=== PATIENT | male | born 1950 | race Two or more races ===

== ENCOUNTER → 2019-04-15 | Emergency (ER) | payer MEDICARE, OTHER ==
[~2019-04-15] VITALS: Ht 172.7 cm; Wt 104.3 kg
[~2019-04-15] MED LIST: ACCOLATE10 MG ORAL; AMLODIPINE BESYL5 MG ORAL; Albuterol ud Inhalation HHN ONE; GLIMEPIRIDE1 MG ORAL; HYDROCHLOROTHIA25 MG ORAL; Ipratropium 0.02% Inh Soln 2.5ml UD HHN ONE; KLONOPIN0.5 MG ORAL; LANTUS SOL100 UNIT/1 SUBQ; LOSARTAN POTASS50 MG ORAL; METFORMIN HCL500 M1 ORAL; ONGLYZA5 MG PO; QUETIAPINE FUM400 MG ORAL; ZOCOR20 M1 ORAL
[2019-04-15 17:30] VITALS: BP 122/48
--- NOTE | 2019-04-15 17:30 | NUR ---
ED Nurse Note: PT WAS BROUGHT IN BY AMBULANCE FROM [facility] DUE TO SMALL AMOUNT OF BRIGHT RED BLOOD WITH STOOL LAST NIGHT. DENIES ABD PAIN AND BLEEDING TODAY. EMS ALSO REPORTED THAT PT OXYGEN SATURATION WENT DOWN TO 86% IN ROOM AIR. PT CAME IN WITH O2 AT 2LPM. AAO X4, NON AMBULATORY WITH SOB AT REST. OCCASIONAL COUGHING NOTED.
[2019-04-15 18:25] LABS: EOSINOPHILS % (AUTO) 4.6 % (0.0-3.0); HEMATOCRIT 45.5 % (42.0-52.0); LYMPHOCYTES % (AUTO) 27.3 % (20.0-45.0); MEAN CORPUSCULAR VOLUME 99 FL (80-99); MONOCYTES % (AUTO) 9.2 % (1.0-10.0); PLATELET COUNT 109 K/UL (150-450); RED BLOOD COUNT 4.58 M/UL (4.70-6.10); RED CELL DISTRIBUTION WIDTH 13.3 % (11.6-14.8); WHITE BLOOD COUNT 5.7 K/UL (4.8-10.8)
[2019-04-15 18:31] LABS: ANION GAP 2 mmol/L (5-15); BLOOD UREA NITROGEN 24 mg/dL (7-18); CALCIUM 8.4 MG/DL (8.5-10.1); CARBON DIOXIDE 35 MMOL/L (21-32); CHLORIDE 107 MMOL/L (98-107); CREATININE 1.3 MG/DL (0.55-1.30); POTASSIUM 4.9 MMOL/L (3.5-5.1); SODIUM 144 MMOL/L (136-145)
[2019-04-15 18:36] LABS: ALANINE AMINOTRANSFERASE 15 U/L (12-78); ALBUMIN/GLOBULIN RATIO 0.7 (1.0-2.7); ALKALINE PHOSPHATASE 69 U/L (46-116); ASPARTATE AMINO TRANSFERASE 12 U/L (15-37); BILIRUBIN,TOTAL 0.2 MG/DL (0.2-1.0)
[2019-04-15 18:40] LABS: INR 1.1 (0.9-1.1)
--- NOTE | 2019-04-15 18:46 | NUR ---
ED Nurse Note: RT AT THE BED SIDE FOR BREATHING TREATMENT.
[2019-04-15 20:19] LABS: APPEARANCE,URINE CLEAR; BILIRUBIN, URINE NEGATIVE (NEGATIVE); COLOR,URINE PALE YELLOW; GLUCOSE, URINE (UA) NEGATIVE (NEGATIVE); KETONES,URINE NEGATIVE (NEGATIVE); LEUKOCYTE ESTERASE ,URINE NEGATIVE (NEGATIVE); NITRITE,URINE NEGATIVE (NEGATIVE); PH,URINE 5 (4.5-8.0); PROTEIN,URINE 3+ (NEGATIVE); UROBILINOGEN,URINE NORMAL MG/DL (0.0-1.0)
--- NOTE | 2019-04-15 20:40 | NUR ---
ED Nurse Note: LEFT MESSAGE FOR THANH KAPLAN NOTIFIYING OF PATIENT AMA AND RETURN. [facility] ETA 2145 PER CHAN ([facility])
--- NOTE | 2019-04-15 20:50 | NUR ---
ED Nurse Note: SPOKE WITH STEPHANIE YU OF [facility]. NOTIFIED OF PATIENT AMA AND RETURN TO SNF
--- NOTE | 2019-04-15 21:30 | Emergency Room Report ---
History of Present Illness General Chief Complaint: Gastrointestinal Bleed Source: Patient Present Illness HPI This patient has morbid obesity and COPD. He presents today because when he was having a bowel movement he noted bright red blood per rectum. He does have home oxygen. When I inquired as to if he was short of breath he declined that he was. However, he appeared short of breath. He denies chest pain. He denies abdominal pain. He has no other complaints. Allergies: Coded Allergies: MILK CONTAINING PRODUCTS (Verified Allergy, Mild, Rash, 04/14/15) Patient History Past Medical History: see triage record, DM, asthma, COPD, other - Anemia Social History: Reports: smoking; Denies: alcohol use, drug use Reviewed Nursing Documentation: PMH: Agreed; PSxH: Agreed Nursing Documentation-PMH Past Medical History: No History, Except For Hx Cardiac Problems: No - Anemia Hx Asthma: Yes Hx Diabetes: Yes Review of Systems All Other Systems: negative except mentioned in HPI Physical Exam Vital Signs Date Time Temp Pulse Resp B/P (MAP) Pulse Ox O2 Delivery O2 Flow Rate FiO2 04/15/19 17:20 98.1 72 19 122/55 (77) 86 Room Air 04/15/19 18:40 2.0 28 Sp02 EP Interpretation: reviewed, normal General Appearance: no apparent distress, alert, GCS 15, non-toxic, obese - morbid Head: normocephalic, atraumatic Eyes: bilateral eye normal inspection, bilateral eye PERRL ENT: hearing grossly normal, normal pharynx, no angioedema, normal voice Neck: full range of motion, supple/symm/no masses Respiratory: chest non-tender, no respiratory distress, speaking full sentences , expiration, inspiration Cardiovascular #1: regular rate, rhythm, no edema Gastrointestinal: normal bowel sounds, non tender, soft, non-distended, no guarding, no rebound Rectal: hemorrhoids Genitourinary: normal inspection, no CVA tenderness Musculoskeletal: back normal, normal range of motion, calf tenderness, gait/ station normal, non-tender Neurologic: alert, motor strength/tone normal, oriented x3, sensory intact, responsive, speech normal Psychiatric: judgement/insight normal, memory normal, mood/affect normal, no suicidal/homicidal ideation Skin: no rash, normal color Medical Decision Making Diagnostic Impression: Primary Impression: Hemorrhoids Additional Impression: COPD exacerbation Laboratory Tests Test 04/15/19 18:06 1/16/20 19:45 White Blood Count 5.7 K/UL (4.8-10.8) Red Blood Count 4.58 M/UL (4.70-6.10) L Hemoglobin 15.0 G/DL (14.2-18.0) Hematocrit 45.5 % (42.0-52.0) Mean Corpuscular Volume 99 FL (80-99) Mean Corpuscular Hemoglobin 32.8 PG (27.0-31.0) H Mean Corpuscular Hemoglobin Concent 33.0 G/DL (32.0-36.0) Red Cell Distribution Width 13.3 % (11.6-14.8) Platelet Count 109 K/UL (150-450) L Mean Platelet Volume 7.1 FL (6.5-10.1) Neutrophils (%) (Auto) 58.0 % (45.0-75.0) Lymphocytes (%) (Auto) 27.3 % (20.0-45.0) Monocytes (%) (Auto) 9.2 % (1.0-10.0) Eosinophils (%) (Auto) 4.6 % (0.0-3.0) H Basophils (%) (Auto) 1.0 % (0.0-2.0) Prothrombin Time 11.4 SEC (9.30-11.50) Prothrombin Time INR 1.1 (0.9-1.1) Activated Partial Thromboplast Time 28 SEC (23-33) Sodium Level 144 MMOL/L (136-145) Potassium Level 4.9 MMOL/L (3.5-5.1) Chloride Level 107 MMOL/L (98-107) Carbon Dioxide Level 35 MMOL/L (21-32) H Anion Gap 2 mmol/L (5-15) L Blood Urea Nitrogen 24 mg/dL (7-18) H Creatinine 1.3 MG/DL (0.55-1.30) Estimate Glomerular Filtration Rate 54.6 mL/min (>60) Glucose Level 98 MG/DL (74-106) Calcium Level 8.4 MG/DL (8.5-10.1) L Total Bilirubin 0.2 MG/DL (0.2-1.0) Aspartate Amino Transferase (AST) 12 U/L (15-37) L Alanine Aminotransferase (ALT) 15 U/L (12-78) Alkaline Phosphatase 69 U/L (46-116) Total Protein 7.1 G/DL (6.4-8.2) Albumin 3.0 G/DL (3.4-5.0) L Globulin 4.1 g/dL Albumin/Globulin Ratio 0.7 (1.0-2.7) L Urine Color Pale yellow Urine Appearance Clear Urine pH 5 (4.5-8.0) Urine Specific [place] 1.020 (1.005-1.035) Urine Protein 3+ (NEGATIVE) H Urine Glucose (UA) Negative (NEGATIVE) Urine Ketones Negative (NEGATIVE) Urine Blood 4+ (NEGATIVE) H Urine Nitrite Negative (NEGATIVE) Urine Bilirubin Negative (NEGATIVE) Urine Urobilinogen Normal MG/DL (0.0-1.0) Urine Leukocyte Esterase Negative (NEGATIVE) Urine RBC 2-4 /HPF (0 - 0) H Urine WBC 0-2 /HPF (0 - 0) Urine Squamous Epithelial Cells None /LPF (NONE/OCC) Urine Bacteria Few /HPF (NONE) EKG Diagnostic Results Rate: normal Rhythm: NSR ST Segments: no acute changes Rhythm Strip Diag. Results EP Interpretation: yes Rate: 60's Rhythm: NSR, no PVC's, no ectopy Last Vital Signs Date Time Temp Pulse Resp B/P (MAP) Pulse Ox O2 Delivery O2 Flow Rate FiO2 04/15/19 18:40 67 32 99 Nasal Cannula 2.0 28 63 29 94 04/15/19 17:30 98.0 122/48 Disposition: AGAINST MEDICAL ADVICE Condition: Stable Referrals: Mac Mo MD (PCP) Zahra Kang DO Apr 15, 2019 21:30
--- NOTE | 2019-04-15 21:30 | NUR ---
ED Nurse Note: NOTIFIED NEO VARGAS OF PATIENT AMA
== END | disposition home or self-care (01) ==
LOC: EDUNIT# 17:19 → EDBD 17:20 → EMR 19:55 → UNDOADMIN 20:16 → 4E 20:16 → EDBEDREQ 20:30
DX: K64.9 Unspecified hemorrhoids (principal); J44.1 Chronic obstructive pulmonary disease with (acute) exacerbation; E11.9 Type 2 diabetes mellitus without complications; F17.200 Nicotine dependence, unspecified, uncomplicated; E66.01 Morbid (severe) obesity due to excess calories; Z91.011 Allergy to milk products; Z68.34 Body mass index [BMI] 34.0-34.9, adult
CPT/HCPCS: 36415; 80053; 81003; 85025; 85610; 85730; 86850; 86900; 86901; 93005; 96360; 99284; J7030; J7512